=== PATIENT | male | born 1990 | race African-American/Black ===

== ENCOUNTER → 2019-11-28 12:19 | Outpatient (CLI) | payer OTHER, SELFPAY ==
--- NOTE | ~2019-11-28 | XR_ITS ---
EXAMINATION: XR cervical spine 4-5V EXAM DATE: 11/28/2019 13:00 INDICATION: Neck pain. TECHNIQUE: Cervical spine frontal, lateral, lateral swimmers, and open-mouth odontoid projections. There is no prior study for comparison. FINDINGS: There is no evidence of acute cervical fracture. The odontoid process is intact. Pre-dens space is normal. Prevertebral soft tissue is normal. There are no soft tissue abnormalities identi fied. The vertebral bodies are aligned. Vertebral body and disc heights are well-maintained. No appreciable arthropathy. Lung apices unremarkable. IMPRESSION: 1. Unremarkable cervical spine exam. Reviewed, dictated and finalized at location B.
--- NOTE | ~2019-11-28 | XR_ITS ---
EXAMINATION: XR chest 2V DATE: 11/28/2019 13:00 INDICATION: Tobacco use. Neck pain. TECHNIQUE: Frontal and lateral views of the chest were obtained. COMPARISON: None. FINDINGS: The chest demonstrates clear lungs without pneumonia, pleural effusion, or pneumothorax. Th e heart size is normal. IMPRESSION: 1. No acute cardiopulmonary disease. Reviewed, dictated and finalized at location A.
== END ==
PROVIDERS: PCP Emergency Medicine; Visit Provider Emergency Medicine
DX: M54.2 Cervicalgia (principal)
CPT/HCPCS: 71046; 72050